=== PATIENT | male | born 1945 | race Two or more races ===

== ENCOUNTER 2018-05-30 21:50 | Emergency (ER) | payer MEDICARE, BC ==
[~2018-05-30] VITALS: Ht 177.8 cm; Wt 78.5 kg
[~2018-05-30 21:50] MED LIST: BENA20TA2 PO; LANS30TA4 PO; SIMV10TA2 PO; THEO300C4 PO
--- NOTE | 2018-05-30 21:50 | NUR ---
PT BIBRA TO ER BED 13 C/O LIGHTHEADNESS W/ 4 EPISODES OF VOMITING EARLY TODAY AFTER FASTING FOR A BLOOD WORK UP AT 0900 TODAY. GOWNED AND PLACED ON MONITOR. STABLE VITALS. AWAITING MD JENKINS.
--- NOTE | 2018-05-30 22:00 | NUR ---
IV LINE STARTED BLOOD DRAWN AND SENT TO LAB.
[2018-05-30] MEDS ORDERED: IV D5/ 0.9% NACL 1,000 ML IV ONE (22:14)
--- NOTE | 2018-05-30 22:15 | NUR ---
DR DIA AT BEDSIDE FOR EVAL.
[2018-05-30 22:54] LABS: BASOPHILS % (AUTO) 0.1 % (0.0-2.0); EOSINOPHILS % (AUTO) 4.9 % (0.0-6.0); HEMATOCRIT 39 % (39-51); HEMOGLOBIN 13.4 g/dL (13.5-17.5); LYMPHOCYTES # (AUTO) 2.2 /CMM (0.8-4.8); LYMPHOCYTES % (AUTO) 23.9 % (20.0-44.0); MEAN CORPUSCULAR HEMOGLOBIN 34 PG (26.0-33.0); MEAN CORPUSCULAR HGB CONC 34 g/dl (31.0-36.0); MEAN CORPUSCULAR VOLUME 99 fL (80-96); MONOCYTES # (AUTO) 0.7 /CMM (0.1-1.30); MONOCYTES % (AUTO) 7.4 % (2.0-12.0); NEUTROPHILS # (AUTO) 5.8 /CMM (1.8-8.9); NEUTROPHILS % (AUTO) 63.7 % (43.0-81.0); PLATELET COUNT (AUTO) 196 /CMM (150-450); RDW COEFFICIENT OF VARIATION 14.9 (11.5-15.0); RED BLOOD CELL COUNT(AUTO) 3.94 MIL/uL (4.5-6.0)
[2018-05-30 23:15] LABS: CALCIUM, SERUM 9.1 mg/dL (8.5-10.1); POTASSIUM 3.9 mmol/L (3.5-5.1)
[2018-05-30 23:21] LABS: ALBUMIN 3.7 g/dL (3.4-5.0); BILIRUBIN,TOTAL 0.3 mg/dL (0.2-1.0); TOTAL PROTEIN, SERUM 7.3 g/dL (6.4-8.2)
--- NOTE | 2018-05-30 23:35 | NUR ---
Patient discharged to home in stable condition. Written and verbal after care instructions given. Patient verbalizes understanding of instruction.IV removed. Catheter intact and site benign. Pressure and 4x4 applied to site. No bleeding noted.
[2018-05-30 23:36] VITALS: BP 125/87
== END 2018-05-30 23:36 | disposition home or self-care (01) ==
LOC: ER 21:51
DX: R42 Dizziness and giddiness (principal); R53.1 Weakness; R55 Syncope and collapse; I10 Essential (primary) hypertension; K21.9 Gastro-esophageal reflux disease without esophagitis
CPT/HCPCS: 36415; 80053; 83690; 85025; 93005; 96360; 99285; A4606; J7042; Z7610